=== PATIENT | female | born 1990 | race Caucasian/White ===

== ENCOUNTER 2019-06-03 00:01 | Emergency (ER) | payer MEDICAID ==
--- NOTE | 2019-06-03 00:29 | EDM.PDOC ---
ED HPI GENERAL MEDICAL PROBLEM - General Chief Complaint: General Stated Complaint: MEDICAL Time Seen by Provider: 06/03/19 00:05 Source of Information: Reports: Other (Boyfriend) History Limitations: Reports: Altered Mental Status - History of Present Illness INITIAL COMMENTS - FREE TEXT/NARRATIVE: 28 years old female patient brought in by her partner for altered mental status. He stated that she was fine when he went to bed then a few hours later woke up because of out of noise and she was running around in the house thrashing and stumbling and thinks. He brought her for evaluation. She said she drinks some alcohol but denies using drugs. He is not sure what had been. He stated that she doesn't use drugs. No report of any trauma or head injury. No report of any chest pain or shortness breath. She is agitated, intoxicated and not able to review her system or collect clear history from her. - Related Data Allergies Allergy/AdvReac Type Severity Reaction Status Date / Time No Known Allergies Allergy Verified 04/18/15 23:59 Home Meds: Home Meds . [Unable to Verify Home Med List] 06/03/19 [History] Past Medical History - Past Health History Medical/Surgical History: Denies Medical/Surgical History Other [employer] History: cervical conization. fiberous breasts Social & Family History - Living Situation & Occupation Living situation: Reports: Single, with Significant Other Occupation: Employed ED ROS GENERAL - Review of Systems Review Of Systems: Unable To Obtain ED EXAM, GENERAL - Physical Exam Exam: See Below Exam Limited By: Altered Mental Status General Appearance: Other (Agitated and combative) Eye Exam: Bilateral Eye: EOMI Ears: Normal External Exam, Normal Canal, Hearing Grossly Normal, Normal TMs Ear Exam: Bilateral Ear: Auricle Normal, Canal Normal, TM normal Nose: Normal Inspection, Normal Mucosa, No Blood Throat/Mouth: Normal Inspection, Normal Lips, Normal Teeth, Normal Gums, Normal Oropharynx, Normal Voice, No Airway Compromise Head: Atraumatic, Normocephalic Respiratory/Chest: No Respiratory Distress, Lungs Clear, Normal Breath Sounds, No Accessory Muscle Use, Chest Non-Tender. No: Crackles, Rales, Rhonchi, Wheezing Cardiovascular: Normal Peripheral Pulses, Tachycardia. No: Diastolic Murmur, Systolic Murmur GI/Abdominal: Normal Bowel Sounds, Soft, Non-Tender, No Organomegaly, No Distention, No Abnormal Bruit, No Mass Back Exam: Normal Inspection, Full Range of Motion, NT Neurological: Inattentive, Disoriented Skin Exam: Diaphoretic Course - Vital Signs Last Recorded V/S: Last Vital Signs Temp 36.4 C 06/03/19 02:48 Pulse 114 H 06/03/19 02:48 Resp 15 06/03/19 02:48 BP 123/79 06/03/19 02:48 Pulse Ox 100 06/03/19 02:48 - Orders/Labs/Meds Orders: Active Orders 24 hr Category Date Time Status Cardiac Monitoring [RC] .As Directed Care 06/03/19 00:40 Active Cardiac Monitoring [RC] .As Directed Care 06/03/19 02:13 Active EKG Documentation Completion [RC] ASDIRECTED Care 06/03/19 02:13 Active RASS Sedation Scale [RC] ASDIRECTED Care 06/03/19 02:44 Active Propofol [Diprivan 100 ML] 100 ml Med 06/03/19 02:45 Active IV TITRATE Desired Level of Sedation (RASS) [AST] Click to Edit Oth 06/03/19 02:44 Ordered EKG 12 Lead [EK] Stat Ther 06/03/19 02:13 Ordered Medication Orders Propofol (Diprivan 100 Ml) 100 mls @ 2.177 mls/hr IV TITRATE BJ; Protocol Last Titration: 06/03/19 03:06 Dose: 45 mcg/kg/min, 19.595 mls/hr Titration: 06/03/19 03:00 Dose: 35 mcg/kg/min, 15.241 mls/hr Titration: 06/03/19 02:54 Dose: 25 mcg/kg/min, 10.886 mls/hr Admin: 06/03/19 02:50 Dose: 20 mcg/kg/min, 8.709 mls/hr Labs: Laboratory Tests 06/03/19 06/03/19 06/03/19 Range/Units 00:40 00:40 00:40 WBC 8.6 (4.5-11.0) K/uL RBC 4.58 (3.30-5.50) M/uL Hgb 14.3 (12.0-15.0) g/dL Hct 43.2 (36.0-48.0) % MCV 94 (80-98) fL MCH 31 (27-31) pg MCHC 33 (32-36) % Plt Count 252 (150-400) K/uL Neut % (Auto) 71 H (36-66) % Lymph % (Auto) 17 L (24-44) % [place] % (Auto) 10 H (2-6) % Eos % (Auto) 1 L (2-4) % Baso % (Auto) 1 (0-1) % PT 10.8 (9.5-12.0) sec INR 1.00 (0.80-1.20) Sodium 139 L (140-148) mmol/L Potassium 4.0 (3.6-5.2) mmol/L Chloride 102 (100-108) mmol/L Carbon Dioxide 26 (21-32) mmol/L Anion Gap 15.0 H (5.0-14.0) mmol/L BUN 15 (7-18) mg/dL Creatinine 1.0 (0.6-1.0) mg/dL Est Cr Clr Drug Dosing 82.98 mL/min Estimated GFR (MDRD) > 60 (>60) Glucose 118 H (74-106) mg/dL Lactic Acid (0.4-2.0) mmol/L Calcium 9.1 (8.5-10.1) mg/dL Phosphorus 4.3 (2.5-4.9) mg/dL Magnesium 1.6 L (1.8-2.4) mg/dL Total Bilirubin 0.8 (0.2-1.0) mg/dL AST 18 (15-37) U/L ALT 27 (12-78) U/L Alkaline Phosphatase 61 (46-116) U/L Troponin I < 0.017 (0.000-0.056) ng/mL Total Protein 7.9 (6.4-8.2) g/dL Albumin 4.3 (3.4-5.0) g/dL Globulin 3.6 H (2.3-3.5) g/dL Albumin/Globulin Ratio 1.2 (1.2-2.2) Lipase 84 (73-393) U/L Urine Color (YELLOW) Urine Appearance (CLEAR) Urine pH (5.0-8.0) Ur Specific [place] (1.008-1.030) Urine Protein (NEGATIVE) mg/dL Urine Glucose (UA) (NEGATIVE) mg/dL Urine Ketones (NEGATIVE) mg/dL Urine Occult Blood (NEGATIVE) Urine Nitrite (NEGATIVE) Urine Bilirubin (NEGATIVE) Urine Urobilinogen (0.2-1.0) EU/dL Ur Leukocyte Esterase (NEGATIVE) Urine RBC (0-5) Urine WBC (0-5) Ur Epithelial Cells Amorphous Sediment Urine Bacteria Urine Mucus Urine HCG, Qual Urine Opiates Screen (NEGATIVE) Ur Oxycodone Screen (NEGATIVE) Urine Methadone Screen (NEGATIVE) Ur Propoxyphene Screen (NEGATIVE) Ur Barbiturates Screen (NEGATIVE) Ur Tricyclics Screen (NEGATIVE) Ur Phencyclidine Scrn (NEGATIVE) Ur Amphetamine Screen (NEGATIVE) U Methamphetamines Scrn (NEGATIVE) Urine MDMA Screen (NEGATIVE) U Benzodiazepines Scrn (NEGATIVE) U Cocaine Metab Screen (NEGATIVE) U Marijuana (THC) Screen (NEGATIVE) Ethyl Alcohol mg/dL 06/03/19 06/03/19 06/03/19 Range/Units 00:40 00:40 01:30 WBC (4.5-11.0) K/uL RBC (3.30-5.50) M/uL Hgb (12.0-15.0) g/dL Hct (36.0-48.0) % MCV (80-98) fL MCH (27-31) pg MCHC (32-36) % Plt Count (150-400) K/uL Neut % (Auto) (36-66) % Lymph % (Auto) (24-44) % [place] % (Auto) (2-6) % Eos % (Auto) (2-4) % Baso % (Auto) (0-1) % PT (9.5-12.0) sec INR (0.80-1.20) Sodium (140-148) mmol/L Potassium (3.6-5.2) mmol/L Chloride (100-108) mmol/L Carbon Dioxide (21-32) mmol/L Anion Gap (5.0-14.0) mmol/L BUN (7-18) mg/dL Creatinine (0.6-1.0) mg/dL Est Cr Clr Drug Dosing mL/min Estimated GFR (MDRD) (>60) Glucose (74-106) mg/dL Lactic Acid 1.9 (0.4-2.0) mmol/L Calcium (8.5-10.1) mg/dL Phosphorus (2.5-4.9) mg/dL Magnesium (1.8-2.4) mg/dL Total Bilirubin (0.2-1.0) mg/dL AST (15-37) U/L ALT (12-78) U/L Alkaline Phosphatase (46-116) U/L Troponin I (0.000-0.056) ng/mL Total Protein (6.4-8.2) g/dL Albumin (3.4-5.0) g/dL Globulin (2.3-3.5) g/dL Albumin/Globulin Ratio (1.2-2.2) Lipase (73-393) U/L Urine Color Yellow (YELLOW) Urine Appearance Clear (CLEAR) Urine pH 6.0 (5.0-8.0) Ur Specific [place] 1.030 (1.008-1.030) Urine Protein Trace H (NEGATIVE) mg/dL Urine Glucose (UA) Normal (NEGATIVE) mg/dL Urine Ketones Negative (NEGATIVE) mg/dL Urine Occult Blood Negative (NEGATIVE) Urine Nitrite Negative (NEGATIVE) Urine Bilirubin Negative (NEGATIVE) Urine Urobilinogen Normal (0.2-1.0) EU/dL Ur Leukocyte Esterase Negative (NEGATIVE) Urine RBC 0-5 (0-5) Urine WBC 0-5 (0-5) Ur Epithelial Cells Few Amorphous Sediment Few Urine Bacteria Few Urine Mucus Numerous Urine HCG, Qual Urine Opiates Screen (NEGATIVE) Ur Oxycodone Screen (NEGATIVE) Urine Methadone Screen (NEGATIVE) Ur Propoxyphene Screen (NEGATIVE) Ur Barbiturates Screen (NEGATIVE) Ur Tricyclics Screen (NEGATIVE) Ur Phencyclidine Scrn (NEGATIVE) Ur Amphetamine Screen (NEGATIVE) U Methamphetamines Scrn (NEGATIVE) Urine MDMA Screen (NEGATIVE) U Benzodiazepines Scrn (NEGATIVE) U Cocaine Metab Screen (NEGATIVE) U Marijuana (THC) Screen (NEGATIVE) Ethyl Alcohol < 3 mg/dL 06/03/19 06/03/19 Range/Units 01:30 01:30 WBC (4.5-11.0) K/uL RBC (3.30-5.50) M/uL Hgb (12.0-15.0) g/dL Hct (36.0-48.0) % MCV (80-98) fL MCH (27-31) pg MCHC (32-36) % Plt Count (150-400) K/uL Neut % (Auto) (36-66) % Lymph % (Auto) (24-44) % [place] % (Auto) (2-6) % Eos % (Auto) (2-4) % Baso % (Auto) (0-1) % PT (9.5-12.0) sec INR (0.80-1.20) Sodium (140-148) mmol/L Potassium (3.6-5.2) mmol/L Chloride (100-108) mmol/L Carbon Dioxide (21-32) mmol/L Anion Gap (5.0-14.0) mmol/L BUN (7-18) mg/dL Creatinine (0.6-1.0) mg/dL Est Cr Clr Drug Dosing mL/min Estimated GFR (MDRD) (>60) Glucose (74-106) mg/dL Lactic Acid (0.4-2.0) mmol/L Calcium (8.5-10.1) mg/dL Phosphorus (2.5-4.9) mg/dL Magnesium (1.8-2.4) mg/dL Total Bilirubin (0.2-1.0) mg/dL AST (15-37) U/L ALT (12-78) U/L Alkaline Phosphatase (46-116) U/L Troponin I (0.000-0.056) ng/mL Total Protein (6.4-8.2) g/dL Albumin (3.4-5.0) g/dL Globulin (2.3-3.5) g/dL Albumin/Globulin Ratio (1.2-2.2) Lipase (73-393) U/L Urine Color (YELLOW) Urine Appearance (CLEAR) Urine pH (5.0-8.0) Ur Specific [place] (1.008-1.030) Urine Protein (NEGATIVE) mg/dL Urine Glucose (UA) (NEGATIVE) mg/dL Urine Ketones (NEGATIVE) mg/dL Urine Occult Blood (NEGATIVE) Urine Nitrite (NEGATIVE) Urine Bilirubin (NEGATIVE) Urine Urobilinogen (0.2-1.0) EU/dL Ur Leukocyte Esterase (NEGATIVE) Urine RBC (0-5) Urine WBC (0-5) Ur Epithelial Cells Amorphous Sediment Urine Bacteria Urine Mucus Urine HCG, Qual Negative Urine Opiates Screen Negative (NEGATIVE) Ur Oxycodone Screen Negative (NEGATIVE) Urine Methadone Screen Negative (NEGATIVE) Ur Propoxyphene Screen Negative (NEGATIVE) Ur Barbiturates Screen Negative (NEGATIVE) Ur Tricyclics Screen Negative (NEGATIVE) Ur Phencyclidine Scrn Negative (NEGATIVE) Ur Amphetamine Screen Presumptive positive H (NEGATIVE) U Methamphetamines Scrn Presumptive positive H (NEGATIVE) Urine MDMA Screen Presumptive positive H (NEGATIVE) U Benzodiazepines Scrn Negative (NEGATIVE) U Cocaine Metab Screen Negative (NEGATIVE) U Marijuana (THC) Screen Presumptive positive H (NEGATIVE) Ethyl Alcohol mg/dL Meds: Medications Generic Name Dose Route Start Last Admin Trade Name Freq PRN Reason Stop Dose Admin Propofol 100 mls @ 2.177 mls/hr 06/03/19 02:45 06/03/19 03:06 Diprivan 100 Ml IV 45 mcg/kg/min TITRATE BJ 19.595 mls/hr Titration Protocol 5 MCG/KG/MIN Discontinued Medications Generic Name Dose Route Start Last Admin Trade Name Freq PRN Reason Stop Dose Admin Sodium Chloride 1,000 mls @ 999 mls/hr 06/03/19 00:42 06/03/19 00:50 Normal Saline IV 06/03/19 01:42 999 mls/hr .BOLUS STA Administration Propofol Confirm 06/03/19 02:42 06/03/19 02:51 Diprivan 100 Ml Administered 06/03/19 02:43 Not Given Dose 100 mls @ as directed .ROUTE .STK-MED ONE Ketamine HCl 350 mg 06/03/19 00:37 06/03/19 01:34 Ketalar IM 06/03/19 00:38 350 mg ONETIME ONE Administration Ketamine HCl Confirm 06/03/19 00:37 06/03/19 02:51 Ketalar Administered 06/03/19 00:38 Not Given Dose 500 mg .ROUTE .STK-MED ONE Ketamine HCl 250 mg 06/03/19 01:10 06/03/19 01:34 Ketalar IM 06/03/19 01:11 150 mg ONETIME ONE Administration Propofol Confirm 06/03/19 02:47 Diprivan 20 Ml Administered 06/03/19 02:48 Dose 200 mg .ROUTE .STK-MED ONE - Radiology Interpretation Free Text/Narrative:: Patient was seen and examined immediately on arrival. She appears intoxicated very agitated and combative. Was given 500 IM ketamine, lab reviewed. Her urine shows positive for amphetamine, methamphetamine, marijuana, MDMA. Given 2 L normal saline bolus. EKG shows sinus tachycardia. Blood pressure has been stable. Continued to be combative and agitated. Decision was made to intubate her. We do not have ICU beds. I did consulted with ICU physician degreaser Dr. Awilda méndez of [facility] and she accepted the transfer for further management. she is currently currently intubated and sedated. ambulance. Here and she is related ago so CT head was not done not to delay transfer. Stable for transfer. Departure - Departure Time of Disposition: 02:25 Disposition: DC/Tfer to Acute Hospital 02 Condition: Good, Fair Clinical Impression: Methamphetamine intoxication - Discharge Information Referrals: PCP,None [Primary Care Provider] - Forms: ED Department Discharge - My Orders Last 24 Hours: My Active Orders 06/03/19 00:40 Cardiac Monitoring [RC] .As Directed 06/03/19 02:13 Cardiac Monitoring [RC] .As Directed EKG Documentation Completion [RC] ASDIRECTED EKG 12 Lead [EK] Stat 06/03/19 02:44 RASS Sedation Scale [RC] ASDIRECTED Desired Level of Sedation (RASS) [AST] Click to Edit 06/03/19 02:45 Propofol [Diprivan 100 ML] 100 ml IV TITRATE - Assessment/Plan Last 24 Hours: My Active Orders 06/03/19 00:40 Cardiac Monitoring [RC] .As Directed 06/03/19 02:13 Cardiac Monitoring [RC] .As Directed EKG Documentation Completion [RC] ASDIRECTED EKG 12 Lead [EK] Stat 06/03/19 02:44 RASS Sedation Scale [RC] ASDIRECTED Desired Level of Sedation (RASS) [AST] Click to Edit 06/03/19 02:45 Propofol [Diprivan 100 ML] 100 ml IV TITRATE Plan: Transfer to [facility]
[2019-06-03] MEDS ORDERED: Ketamine 500 MG/5 ML MDV IM ONE ×2 (00:37→01:10)
[2019-06-03] MEDS ORDERED: Ketamine 500 MG/5 ML MDV ONE (00:37)
[2019-06-03] MEDS ORDERED: Sodium Chloride 0.9% 1,000 ML IV STA (00:42)
[2019-06-03] MEDS ORDERED: Propofol 200 MG/20 ML SDV ONE (02:47)
--- NOTE | 2019-06-03 03:05 | CRLCR ---
Indication: Intubated Technique: Chest 1 view Comparison: None Findings/Impression: Endotracheal tube tips terminates 3.9 cm above the level of the maulik. Normal cardiomediastinal silhouette. Lungs and pleural spaces are clear. No acute osseous abnormality. Dictated by Isabel Morin MD @ Jun 03 2019 3:03AM Signed by Dr. Isabel Morin @ Jun 03 2019 3:03AM
--- NOTE | 2019-06-03 03:20 | ANES ---
DATE OF SERVICE: 06/03/2019 I was called to the emergency room to evaluate Ms. Lai for an intubation. She is here for an apparent overdose and needs airway protection. I did go ahead and give her 200 mg of propofol, and the emergency room doctor performed the intubation with a GlideScope with an 8.0 endotracheal tube. She tolerated the procedure very nicely. She is quite obtunded, although she could not open her mouth without the Diprivan. Tavon Green CRNA /[id number]
[2019-06-03 03:26] VITALS: BP 124/69; PULSE 113
== END 2019-06-03 03:40 ==
LOC: JP.ED 00:01
DX: F15.129 Other stimulant abuse with intoxication, unspecified (principal)
CPT/HCPCS: 31500; 36415; 51702; 71045; 80053; 80305; 81001; 81025; 83605; 83690; 83735; 84100; 84484; 85025; 85610; 93005; 96361; 96365; 96372; 99285; G0480; J2704; J7030; 96360

== ENCOUNTER 2019-09-11 06:10 | Day surgery (SDC) | payer MEDICAID ==
[2019-09-11 06:29] VITALS: BP 123/65; PULSE 97
[2019-09-11] MEDS ORDERED: Dextrose 5%-Lactated Ringers 1,000 ML IV SCH (06:30)
[2019-09-11] MEDS ORDERED: Lidocaine 1% with EPINEPHrine 1:100,000 50 ML MDV ONE (06:58)
[2019-09-11] MEDS ORDERED: Bupivacaine 0.5% 50 ML MDV ONE (06:58)
[2019-09-11] MEDS ORDERED: cefOXitin 2 GM in Sodium Chloride 0.9% 50 ML IV ONE (07:30)
== END 2019-09-11 08:25 | disposition home or self-care (01) ==
LOC: JP.SDS 06:10
PROVIDERS: ATTEND Surgery
DX: K81.1 Chronic cholecystitis (principal); Z53.9 Procedure and treatment not carried out, unspecified reason
CPT/HCPCS: 80305; J3490; J7042

== ENCOUNTER 2022-01-09 12:06 | Emergency (ER) | payer MEDICAID ==
[2022-01-09 12:30] VITALS: BP 139/79; PULSE 101
== END 2022-01-09 14:21 | disposition home or self-care (01) ==
LOC: JP.ED 12:06
DX: R07.89 Other chest pain (principal)
CPT/HCPCS: 36415; 71045; 71045-26; 80048; 84484; 85025; 85379; 93005; 93010; 99282; 99285-25

== ENCOUNTER 2022-12-23 15:49 | Emergency (ER) | payer MEDICAID ==
[2022-12-23 16:03] VITALS: BP 154/87; PULSE 100
[2022-12-23] MEDS ORDERED: Ketorolac 30 MG/ML SDV IM ONE (16:20)
[2022-12-23] MEDS ORDERED: LORazepam 2 MG/ML SDV IM ONE (16:21)
[2022-12-23 16:58] LABS: ESTIMATED GFR 99 mL/min (>60); TROPONIN I HIGH SENSITIVITY 8.2 pg/mL (<=60.3)
== END 2022-12-23 17:31 | disposition home or self-care (01) ==
LOC: JP.ED 15:49
DX: F41.0 Panic disorder [episodic paroxysmal anxiety] (principal); Z72.0 Tobacco use
CPT/HCPCS: 36415; 71046; 80053; 83605; 84484; 85025; 93005; 96372; 99285; J1885; J2060

== ENCOUNTER 2023-01-21 20:29 | Emergency (ER) | payer MEDICAID ==
[2023-01-21 20:49] VITALS: BP 130/76; PULSE 108
[2023-01-21 21:24] LABS: ESTIMATED GFR 99 mL/min (>60)
[2023-01-21] MEDS ORDERED: Ketorolac 30 MG/ML SDV IM ONE (21:42)
[2023-01-21 21:45] LABS: CORONAVIRUS COVID-19 NAA POSITIVE (NEGATIVE)
== END 2023-01-21 22:00 | disposition home or self-care (01) ==
LOC: JP.ED 20:29
DX: U07.1 COVID-19 (principal); F17.210 Nicotine dependence, cigarettes, uncomplicated
CPT/HCPCS: 0241U; 36415; 80053; 81001; 85025; 86140; 96372; 99283; J1885

== ENCOUNTER 2023-02-26 19:45 | Emergency (ER) | payer MEDICAID ==
[2023-02-26 19:59] VITALS: BP 144/88; PULSE 110
[2023-02-26] MEDS ORDERED: Ketorolac 30 MG/ML SDV IM ONE (20:16)
[2023-02-26 20:28] LABS: BASOPHILS ABSOLUTE AUTO 0.08 K/uL (0.00-0.10); BASOPHILS PERCENT AUTO 0.8 % (0.1-1.3); EOSINOPHILS ABSOLUTE AUTO 0.21 K/uL (0.00-0.40); HEMATOCRIT 39.4 % (34.3-46.0); IMMATURE GRAN ABSOLUTE AUTO 0.04 K/uL (0.00-0.23); IMMATURE GRAN PERCENT AUTO 0.4 % (0.0-0.7); LYMPHOCYTES ABSOLUTE AUTO 1.27 K/uL (0.8-3.3); LYMPHOCYTES PERCENT AUTO 12.1 % (11.4-47.7); MEAN CORPUSCULAR HEMOGLOBIN 31.6 pg (31.6-35.5); MEAN CORPUSCULAR VOLUME 95.6 fL (81.4-99.0); MONOCYTES ABSOLUTE AUTO 0.99 K/uL (0.20-0.90); MONOCYTES PERCENT AUTO 9.5 % (3.3-12.6); NEUTROPHILS ABSOLUTE AUTO 7.88 K/uL (1.0-7.6); NEUTROPHILS PERCENT AUTO 75.2 % (40.0-78.1); PLATELET COUNT,PLT 244 K/uL (130-375); RED BLOOD CELL COUNT 4.12 M/uL (3.77-5.24); WHITE BLOOD CELL COUNT,WBC 10.5 K/uL (3.2-11.0)
== END 2023-02-26 21:46 | disposition home or self-care (01) ==
LOC: JP.ED 19:45
DX: M76.61 Achilles tendinitis, right leg (principal); Z72.0 Tobacco use
CPT/HCPCS: 36415; 85025; 85379; 86140; 96372; 99283; J1885

== ENCOUNTER 2023-06-30 02:39 | Emergency (ER) | payer MEDICAID ==
[2023-06-30 02:59] VITALS: BP 132/89; PULSE 103
== END 2023-06-30 03:22 | disposition home or self-care (01) ==
LOC: JP.ED 02:39
DX: S00.03XA Contusion of scalp, initial encounter (principal); F17.210 Nicotine dependence, cigarettes, uncomplicated; X58.XXXA Exposure to other specified factors, initial encounter
CPT/HCPCS: 99283

== ENCOUNTER 2025-03-10 19:22 | Emergency (ER) | payer MEDICAID ==
[2025-03-10 19:32] VITALS: BP 143/84; PULSE 116
[2025-03-10] MEDS: Diphtheria,Pertussis(Acell),Tetanus Vaccine 0.5 ML Syringe IM ONE (19:50)
[2025-03-10] MEDS: Lidocaine 1% 5 ML VIAL INJECT ONE (19:55)
== END 2025-03-10 19:59 | disposition home or self-care (01) ==
LOC: JP.ED 19:22
DX: S60.450A Superficial foreign body of right index finger, initial encounter (principal); Z23 Encounter for immunization; Z79.899 Other long term (current) drug therapy; W45.8XXA Other foreign body or object entering through skin, initial encounter
CPT/HCPCS: 90471; 90715; 99283; J2003